=== PATIENT | female | born 1960 | race American Indian/Alaskan Native ===

== ENCOUNTER 2017-01-10 11:57 | Emergency (ER) | payer OTHER ==
[2017-01-10 12:20] VITALS: BMI 25.5
[2017-01-10 12:23] VITALS: O2SAT 98
[2017-01-10 12:51] VITALS: TEMP 97.8
--- NOTE | 2017-01-10 13:11 | ED PDOC ---
Arrival/HPI - General Chief Complaint: Abdominal Pain Time Seen by Provider: 01/10/17 12:43 Historian: Patient - History of Present Illness Narrative History of Present Illness (Text): 01/10/17 13:00 Romulo Gomez is a 56 year old female, whose past medical history includes chronic back pain and kidney stones, who presents to the emergency department complaining of intermittent epigastric pain, nausea, vomiting, and fever for 5 days. Patients states that her epigastria is hard and painful when touched. Patient describes her pain as a "hunger pain" that is similar to the pain she had before she got kidney stones, in the same location. Patient denies any chest pain, shortness of breath, diarrhea, urinary symptoms, back pain, neck pain, headache, dizziness, or any other complaints. PMD: Dr. 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 stent removal on sep 29, 2016 - Endocrine/Metabolic Hx Endocrine Disorders: No - Hematological/Oncological Hx Blood Transfusion Reaction: No - Integumentary Hx Dermatological Disorder: No - Musculoskeletal/Rheumatological Hx Musculoskeletal Disorders: No Hx Falls: No - Gastrointestinal Hx Gastrointestinal Disorders: No - Genitourinary/Gynecological Hx Genitourinary Disorders: No - Psychiatric Hx Psychophysiologic Disorder: No Hx Substance Use: No - Surgical History Other/Comment: stent 1 week for stones right side kidney - Anesthesia Hx Anesthesia Reactions: No Hx Malignant Hyperthermia: No Family/Social History - Physician Review Nursing Documentation Reviewed: Yes Family/Social History: No Known Family HX Smoking Status: Light Smoker < 10 Cigarettes Daily Hx Alcohol Use: No Hx Substance Use: No Allergies/Home Meds Allergies/Adverse Reactions: Allergies No Known Allergies Allergy (Verified 01/10/17 12:20) Review of Systems - Physician Review All systems were reviewed & negative as marked: Yes - Review of Systems Constitutional: Fevers. absent: Night Sweats Eyes: absent: Vision Changes ENT: absent: Hearing Changes Respiratory: absent: SOB, Cough Cardiovascular: absent: Chest Pain Gastrointestinal: Abdominal Pain, Nausea, Vomiting Genitourinary Female: absent: Urine Output Changes Musculoskeletal: absent: Back Pain, Neck Pain Skin: absent: Rash, Pruritis Neurological: absent: Headache, Dizziness Endocrine: absent: Polyuria Hemo/Lymphatic: absent: Easy Bleeding Psychiatric: absent: Depression Physical Exam Vital Signs Reviewed: Yes Vital Signs Temp Pulse Resp BP Pulse Ox 01/10/17 17:27 84 18 136/89 98 01/10/17 16:24 91 H 18 138/91 H 98 01/10/17 12:50 97.8 F 01/10/17 12:20 99.5 F 102 H 16 143/103 H 98 Temperature: Afebrile Blood Pressure: Hypertensive Pulse: Tachycardic Respiratory Rate: Normal Appearance: Positive for: Well-Appearing, Non-Toxic, Comfortable Pain Distress: None Mental Status: Positive for: Alert and Oriented X 3 - Systems Exam Head: Present: Atraumatic, Normocephalic Pupils: Present: PERRL Extroacular Muscles: Present: EOMI Conjunctiva: Present: Normal Mouth: Present: Moist Mucous Membranes Neck: Present: Normal Range of Motion Respiratory/Chest: Present: Clear to Auscultation, Good Air Exchange. No: Respiratory Distress, Accessory Muscle Use Cardiovascular: Present: Regular Rate and Rhythm, Normal S1, S2. No: Murmurs Abdomen: Present: Tenderness (severe tenderness to palpation to epigastric area) Back: Present: Normal Inspection Upper Extremity: Present: Normal Inspection. No: Cyanosis, Edema Lower Extremity: Present: Normal Inspection. No: Edema Neurological: Present: GCS=15, CN II-XII Intact, Speech Normal Skin: Present: Warm, Dry, Normal Color. No: Rashes Psychiatric: Present: Alert, Oriented x 3, Normal Insight, Normal Concentration Medical Decision Making ED Course and Treatment: 01/10/17 13:00 Impression: 56 year old female complaining of intermittent epigastric pain, nausea, vomiting , and fever for 5 days Differential Diagnosis included but are not limited to: Renal stone vs. Perforated viscus vs. Cholecystitis vs. Pancreatitis vs. peptic ulcer disease Plan: -- EKG -- Chest X-ray -- Abdomen US -- Abdomen and Pelvis CT w/o contrast -- Urinalysis -- Labs -- Pepcid, Toradol, Morphine, Zofran, and IV Fluids -- Reassess and disposition Prior Visits: Notes and results from previous visits were reviewed. Patient last seen in the ED on 09/30/16 for right flank pain for a day. Patient was admitted to hospitalist care for further evaluation. Progress Notes: EKG: Ordered, reviewed, and independently interpreted the EKG. Rate : 99 BPM Rhythm : NSR Interpretation : Normal intervals. Normal axis. No ST-T changes. 01/10/17 14:55 Abdominal Ultrasound: Creator : Eddie Mena MD FINDINGS: LIVER:Measures 17.4 cm. Normal echogenicity of the liver parenchyma. No mass. No intrahepatic bile duct dilatation. GALLBLADDER:Unremarkable. No gallstones. COMMON BILE DUCT:Measures 2 mm. No stones. No dilatation. PANCREAS:Unremarkable as visualized. No mass. No ductal dilatation. RIGHT KIDNEY:Measures 10.6cm. Normal echogenicity. No calculus, mass, or hydronephrosis. LEFT KIDNEY:Measures 10.7cm. Normal echogenicity. No calculus, mass, or hydronephrosis. SPLEEN:Normal in size and contour. No mass. AORTA:No aneurysmal dilatation. IVC:Unremarkable. OTHER FINDINGS:None. IMPRESSION:Unremarkable abdominal sonogram. 01/10/17 15:00 Chest X-ray: Creator : Chris Barnes MD FINDINGS: LUNGS:Clear. PLEURA:No pneumothorax or pleural fluid seen. CARDIOVASCULAR:Normal. OSSEOUS STRUCTURES:No significant abnormalities. VISUALIZED UPPER ABDOMEN:Normal. OTHER FINDINGS:None. IMPRESSION: No active disease. 01/10/17 15:[address]: Creator : Eddie Mena MD FINDINGS: LOWER THORAX:Unremarkable. LIVER:Unremarkable. No gross lesion or ductal dilatation. GALLBLADDER AND BILE DUCTS:Unremarkable. PANCREAS:Unremarkable. No gross lesion or ductal dilatation. SPLEEN:Unremarkable. ADRENALS:Unremarkable. No mass. KIDNEYS AND URETERS:Unremarkable. No hydronephrosis. No solid mass. No renal or ureteral calculus. VASCULATURE:Unremarkable. No aortic aneurysm. BOWEL:Unremarkable. No obstruction. No gross mural thickening. APPENDIX:Unremarkable. Normal appendix. PERITONEUM:Unremarkable. No free fluid. No free air. LYMPH NODES:Unremarkable. No enlarged lymph nodes. BLADDER:Unremarkable. REPRODUCTIVE:Status post hysterectomy BONES:No acute fracture. OTHER FINDINGS:None. IMPRESSION: No acute abnormality. No evidence of urinary calculus or urinary tract obstruction. 01/10/17 18:02 Patient with noted history with unremarkable labs and imaging and unremarkable ekg. She reports feeling much better at this time with resolution of pain. Will d/c her on PPI and have her f/u GI. - Lab Interpretations Lab Results: 01/10/17 14:05 01/10/17 14:05 Lab Results 01/10/17 16:50: Urine Color Yellow, Urine Appearance Clear, Urine pH 6.0, Ur Specific [place] 1.025, Urine Protein Negative, Urine Glucose (UA) Negative, Urine Ketones 15 H, Urine Blood Negative, Urine Nitrate Negative, Urine Bilirubin Negative, Urine Urobilinogen 1.0 H, Ur Leukocyte Esterase Negative 01/10/17 14:05: Sodium 139, Potassium 4.9, Chloride 103, Carbon Dioxide 28, Anion Gap 13, BUN 15, Creatinine 0.8, Est GFR ( Amer) > 60, Est GFR (Non- Af Amer) > 60, Random Glucose 94, Calcium 10.2, Total Bilirubin 0.8, AST 28, ALT 37, Alkaline Phosphatase 138 H, Lactate Dehydrogenase 506, Total Creatine Kinase 62, Troponin I < 0.01, Total Protein 8.5 H, Albumin 4.5, Globulin 4.0, Albumin/Globulin Ratio 1.1, Amylase 128 H, Lipase 133 01/10/17 14:05: PT 10.5, INR 0.97, APTT 27.9 01/10/17 14:05: WBC 7.2 D, RBC 4.86, Hgb 13.7, Hct 40.6, MCV 83.5, MCH 28.2, MCHC 33.7, RDW 14.4, Plt Count 203, MPV 11.2 H, Gran % 56.8, Lymph % (Auto) 35.5 H, Emmet % (Auto) 5.0, Eos % (Auto) 2.1, Baso % (Auto) 0.6, Gran # 4.11, Lymph # 2.6, Emmet # 0.4, Eos # 0.2, Baso # 0.04 I have reviewed the lab results: Yes - RAD Interpretation Radiology Orders: 01/10/17 13:14 ABDOMEN COMPLETE [US] Stat 01/10/17 13:15 ABD & PELVIS W/O PO OR IV CONT [CT] Stat 01/10/17 13:16 CHEST ONE VIEW [RAD] Stat - Medication Orders Current Medication Orders: Discontinued Medications Famotidine (Pepcid) 20 mg IVP STAT STA Stop: 01/10/17 13:15 Last Admin: 01/10/17 14:07 Dose: 20 mg Sodium Chloride (Sodium Chloride 0.9%) 1,000 mls @ 999 mls/hr IV .Q1H1M STA Stop: 01/10/17 14:14 Last Admin: 01/10/17 14:09 Dose: 999 mls/hr Ketorolac Tromethamine (Toradol) 30 mg IVP STAT STA Stop: 01/10/17 13:15 Last Admin: 01/10/17 14:07 Dose: 30 mg Morphine Sulfate (Morphine) 4 mg IVP STAT STA Stop: 01/10/17 13:16 Last Admin: 01/10/17 14:08 Dose: 4 mg Morphine Sulfate (Morphine) 4 mg IVP STAT STA Stop: 01/10/17 15:18 Last Admin: 01/10/17 15:38 Dose: 4 mg Ondansetron HCl (Zofran Inj) 4 mg IVP STAT STA Stop: 01/10/17 13:18 Last Admin: 01/10/17 14:08 Dose: 4 mg - Scribe Statement The provider has reviewed the documentation as recorded by the Stacey Amado Provider Scribe Attestation: All medical record entries made by the Cadenceibmarina were at my direction and personally dictated by me. I have reviewed the chart and agree that the record accurately reflects my personal performance of the history, physical exam, medical decision making, and the department course for this patient. I have also personally directed, reviewed, and agree with the discharge instructions and disposition. Disposition/Present on Arrival - Present on Arrival Any Indicators Present on Arrival: No History of DVT/PE: No History of Uncontrolled Diabetes: No Urinary Catheter: No History of Decub. Ulcer: No History Surgical Site Infection Following: None - Disposition Have Diagnosis and Disposition been Completed?: Yes Diagnosis: Epigastric pain Disposition: HOME/ ROUTINE Disposition Time: 18:05 Patient Plan: Discharge Condition: GOOD Discharge Instructions (ExitCare): Diet for Ulcers and Gastritis (ED) Additional Instructions: Take the medications as prescribed. Follow up with gastroenterology. Return to the emergency department if any new concerning symptoms. Prescriptions: Esomeprazole Magnesium [Nexium] 1 cap PO DAILY #30 capsule. traMADol [Ultram] 1 tab PO Q8H PRN #10 tab PRN Reason: Pain, Severe (8-10) Referrals: Aubrie Medrano MD [Primary Care Provider] - Follow up with primary Salomón Gandhi MD [Staff Provider] - Follow up with primary
[2017-01-10] MEDS ORDERED: Sodium Chloride 0.9% 1,000 ML IV STA (13:14)
[2017-01-10] MEDS ORDERED: Morphine 4 mg/ml ISec IVP STA ×2 (13:15→15:17)
[2017-01-10 14:17] LABS: ADD MANUAL DIFF? NO
[2017-01-10 14:30] LABS: ALB/GLOB RATIO 1.1 (1.1-1.8); ALKALINE PHOSPHATASE 138 U/L (38-133); ALT/SGPT 37 U/L (7-56); AMYLASE 128 U/L (35-125); AST/SGOT 28 U/L (15-39); BILIRUBIN,TOTAL 0.8 mg/dL (0.2-1.3); BLOOD UREA NITROGEN 15 mg/dL (7-21); CALCIUM 10.2 mg/dL (8.4-10.5); CARBON DIOXIDE 28 mmol/L (21-33); CHLORIDE 103 mmol/L (98-107); GFR AFRICAN-AMERICAN > 60; GLUCOSE,RANDOM 94 mg/dL (70-110); LIPASE 133 U/L (23-300); POTASSIUM 4.9 mmol/L (3.6-5.0); SODIUM 139 mmol/L (132-148); TOTAL PROTEIN 8.5 g/dL (5.8-8.3)
[2017-01-10 14:35] LABS: BASO # 0.04 K/mm3 (0.0-2.0); BASO % 0.6 % (0.0-3.0); EOS # 0.2 (0.0-0.7); EOS % 2.1 % (1.5-5.0); GRAN # 4.11 (1.4-6.5); GRAN % 56.8 % (50.0-68.0); HEMATOCRIT 40.6 % (36.0-48.0); LYMPH # 2.6 (1.2-3.4); LYMPH % 35.5 % (22.0-35.0); MEAN CELL VOLUME 83.5 fL (80.0-105.0); MEAN CORPUSCULAR HEMOGLOBIN 28.2 pg (25.0-35.0); MEAN CORPUSCULAR HGB CONC 33.7 g/dl (31.0-37.0); MEAN PLATELET VOLUME 11.2 fl (7.0-11.0); MONO # 0.4 (0.1-0.6); PLATELET COUNT 203 10^3/uL (120.0-450.0); RED CELL DISTRIBUTION WIDTH 14.4 % (11.5-14.5); WHITE BLOOD COUNT 7.2 10^3/ul (4.5-11.0)
[2017-01-10 14:41] LABS: INR 0.97 (0.93-1.08); PARTIAL THROMBOPLASTIN TIME 27.9 Seconds (23.7-30.8)
[2017-01-10 14:43] LABS: TROPONIN I < 0.01 ng/mL
--- NOTE | 2017-01-10 14:51 | US ---
HISTORY: upper abd pain COMPARISON: 08/16/2016 TECHNIQUE: Sonographic evaluation of the abdomen. FINDINGS: LIVER: Measures 17.4 cm. Normal echogenicity of the liver parenchyma. No mass. No intrahepatic bile duct dilatation. GALLBLADDER: Unremarkable. No gallstones. COMMON BILE DUCT: Measures 2 mm. No stones. No dilatation. PANCREAS: Unremarkable as visualized. No mass. No ductal dilatation. RIGHT KIDNEY: Measures 10.6cm. Normal echogenicity. No calculus, mass, or hydronephrosis. LEFT KIDNEY: Measures 10.7cm. Normal echogenicity. No calculus, mass, or hydronephrosis. SPLEEN: Normal in size and contour. No mass. AORTA: No aneurysmal dilatation. IVC: Unremarkable. OTHER FINDINGS: None. IMPRESSION: Unremarkable abdominal sonogram.
--- NOTE | 2017-01-10 15:00 | RAD ---
PROCEDURE: CHEST RADIOGRAPH, 1 VIEW HISTORY: upper abd pain COMPARISON: 08/16/2016 FINDINGS: LUNGS: Clear. PLEURA: No pneumothorax or pleural fluid seen. CARDIOVASCULAR: Normal. OSSEOUS STRUCTURES: No significant abnormalities. VISUALIZED UPPER ABDOMEN: Normal. OTHER FINDINGS: None. IMPRESSION: No active disease.
--- NOTE | 2017-01-10 15:02 | CT ---
PROCEDURE: CT Abdomen and Pelvis without intravenous contrast HISTORY: abd pain; h/o renal stones and hydronephrosis COMPARISON: None. TECHNIQUE: Technique. Contrast Dose: 0 Radiation dose: Total exam DLP = 416.19 mGy-cm. This CT exam was performed using one or more of the following dose reduction techniques: Automated exposure control, adjustment of the mA and/or kV according to patient size, and/or use of iterative reconstruction technique. FINDINGS: LOWER THORAX: Unremarkable. LIVER: Unremarkable. No gross lesion or ductal dilatation. GALLBLADDER AND BILE DUCTS: Unremarkable. PANCREAS: Unremarkable. No gross lesion or ductal dilatation. SPLEEN: Unremarkable. ADRENALS: Unremarkable. No mass. KIDNEYS AND URETERS: Unremarkable. No hydronephrosis. No solid mass. No renal or ureteral calculus. VASCULATURE: Unremarkable. No aortic aneurysm. BOWEL: Unremarkable. No obstruction. No gross mural thickening. APPENDIX: Unremarkable. Normal appendix. PERITONEUM: Unremarkable. No free fluid. No free air. LYMPH NODES: Unremarkable. No enlarged lymph nodes. BLADDER: Unremarkable. REPRODUCTIVE: Status post hysterectomy BONES: No acute fracture. OTHER FINDINGS: None. IMPRESSION: No acute abnormality. No evidence of urinary calculus or urinary tract obstruction.
[2017-01-10 16:24] VITALS: RESP 18
[2017-01-10 17:05] LABS: URINE BILIRUBIN NEGATIVE (NEGATIVE); URINE BLOOD NEGATIVE (NEGATIVE); URINE GLUCOSE (UA) NEGATIVE (NEGATIVE); URINE KETONE 15 mg/dL (NEGATIVE); URINE LEUKOCYTE ESTERASE NEGATIVE Leu/uL (NEGATIVE); URINE PROTEIN NEGATIVE mg/dL (<30 mg/dL)
[2017-01-10 17:17] LABS: URINE APPEARANCE CLEAR (CLEAR); URINE COLOR YELLOW (YELLOW)
[2017-01-10 17:27] VITALS: PULSE 84
[2017-01-10 18:15] VITALS: BP 111/77
--- NOTE | 2017-01-11 01:33 | CARD ---
APPROVED REPORT EKG Measurement Heart [id number] <Conclusion> Normal sinus rhythm Possible Left atrial enlargement Borderline ECG
== END 2017-01-10 18:41 | disposition home or self-care (01) ==
LOC: ED 11:57
DX: R10.13 Epigastric pain (principal)
CPT/HCPCS: 71010; 74176; 76700; 80053; 81003; 82150; 82550; 83615; 83690; 84484; 85025; 85610; 85730; 93005; 96361; 96374; 96375; 96376; 99284; J1885; J2270; J2405; J7040

== ENCOUNTER 2017-06-02 15:36 | Observation (INO) | payer OTHER ==
[2017-06-02 15:37] VITALS: BMI 25.5
--- NOTE | 2017-06-02 15:59 | ED PDOC ---
Arrival/HPI - General Chief Complaint: Weakness/Neurological Deficit Time Seen by Provider: 06/02/17 15:37 Historian: Patient - History of Present Illness Narrative History of Present Illness (Text): 06/02/17 15:56 57 yo female, hx of htn, presents with numbness and slurred speech, as per pt, started yesterday. reports left sided numbness. also reports left sided cp and huston. no fevers, no cough, no n/v/d, no urinary changes. 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 stent removal on sep 29, 2016 - Endocrine/Metabolic Hx Endocrine Disorders: No - Hematological/Oncological Hx Blood Transfusion Reaction: No - Integumentary Hx Dermatological Disorder: No - Musculoskeletal/Rheumatological Hx Musculoskeletal Disorders: No Hx Falls: No - Gastrointestinal Hx Gastrointestinal Disorders: No - Genitourinary/Gynecological Hx Genitourinary Disorders: No - Psychiatric Hx Psychophysiologic Disorder: No Hx Substance Use: No - Surgical History Other/Comment: stent 1 week for stones right side kidney - Anesthesia Hx Anesthesia Reactions: No Hx Malignant Hyperthermia: No Family/Social History - Physician Review Nursing Documentation Reviewed: Yes Family/Social History: Unknown Family HX Smoking Status: Light Smoker < 10 Cigarettes Daily Hx Alcohol Use: No Hx Substance Use: No Allergies/Home Meds Allergies/Adverse Reactions: Allergies No Known Allergies Allergy (Verified 01/10/17 12:20) Home Medications: Home Meds Medication Instructions Recorded Confirmed Losartan [Cozaar] 0 mg PO BID 06/02/17 06/02/17 Review of Systems - Review of Systems Constitutional: Normal Eyes: Normal ENT: Normal Respiratory: Normal Cardiovascular: Chest Pain Gastrointestinal: Normal Genitourinary Female: Normal Musculoskeletal: Normal Skin: Normal Neurological: Headache, Other (numbness) Endocrine: Normal Hemo/Lymphatic: Normal Psychiatric: Normal Physical Exam Vital Signs Reviewed: Yes Vital Signs Temp Pulse Resp BP Pulse Ox 06/02/17 18:03 84 17 135/92 H 98 06/02/17 17:11 73 16 136/89 100 06/02/17 15:40 97.9 F 92 H 16 140/98 H 95 Temperature: Afebrile Blood Pressure: Hypertensive Pulse: Regular Respiratory Rate: Normal Appearance: Positive for: Well-Appearing, Non-Toxic, Comfortable Pain Distress: None Mental Status: Positive for: Alert and Oriented X 3 - Systems Exam Head: Present: Atraumatic, Normocephalic Pupils: Present: PERRL Extroacular Muscles: Present: EOMI Conjunctiva: Present: Normal Mouth: Present: Moist Mucous Membranes Neck: Present: Normal Range of Motion Respiratory/Chest: Present: Clear to Auscultation, Good Air Exchange. No: Respiratory Distress, Accessory Muscle Use Cardiovascular: Present: Regular Rate and Rhythm, Normal S1, S2. No: Murmurs Abdomen: Present: Normal Bowel Sounds. No: Tenderness, Distention, Peritoneal Signs Back: Present: Normal Inspection Upper Extremity: Present: Normal Inspection. No: Cyanosis, Edema Lower Extremity: Present: Normal Inspection. No: Edema Neurological: Present: GCS=15, CN II-XII Intact, Other (mild slurring speech) Skin: Present: Warm, Dry, Normal Color. No: Rashes Psychiatric: Present: Alert, Oriented x 3, Normal Insight, Normal Concentration Medical Decision Making ED Course and Treatment: ro cva - pt with 1 day of symptoms not code stroke. 06/02/17 16:02 ekg sinus [address] t wave changes 06/02/17 16:26 CT HEAD WITHOUT CONTRAST Creator : Chris Barnes MD FINDINGS: HEMORRHAGE: No intracranial hemorrhage. BRAIN: No mass effect or edema. No atrophy or chronic microvascular ischemic changes. VENTRICLES: Unremarkable. No hydrocephalus. CALVARIUM: Unremarkable. PARANASAL SINUSES: Unremarkable as visualized. No significant inflammatory changes. MASTOID AIR CELLS: Unremarkable as visualized. No inflammatory changes. IMPRESSION: Normal CT of the Head. 06/02/17 17:05 chest xray: Creator : Chris Barnes MD FINDINGS: LUNGS: No active pulmonary disease. PLEURA: No significant pleural effusion identified, no pneumothorax apparent. CARDIOVASCULAR: Normal. OSSEOUS STRUCTURES: No significant abnormalities. VISUALIZED UPPER ABDOMEN: Normal. IMPRESSION: No active disease. 06/02/17 18:[address] young, asa given. - Lab Interpretations Lab Results: 06/02/17 16:00 06/02/17 16:00 Lab Results 06/02/17 16:00: TSH 3rd Generation 0.75, Alcohol, Quantitative < 10 06/02/17 16:00: Phosphorus 4.1, Magnesium 2.0 06/02/17 16:00: Blood Type O POSITIVE, Antibody Screen Negative, BBK History Checked Patient has bt 06/02/17 16:00: Sodium 143, Potassium 4.0, Chloride 108 H, Carbon Dioxide 25, Anion Gap 14, BUN 14, Creatinine 0.9, Est GFR ( Amer) > 60, Est GFR (Non- Af Amer) > 60, Random Glucose 97, Calcium 10.0, Magnesium 2.0, Total Bilirubin 0.9, AST 44 H, ALT 34, Alkaline Phosphatase 136 H, Lactate Dehydrogenase 623, Total Creatine Kinase 171, Troponin I < 0.01, Total Protein 8.0, Albumin 4.6, Globulin 3.4, Albumin/Globulin Ratio 1.4, Triglycerides 84, Cholesterol 189, LDL Cholesterol Direct 81, HDL Cholesterol 75 H 06/02/17 16:00: PT 11.3, INR 1.04, APTT 29.7 06/02/17 16:00: WBC 5.6 D, RBC 4.81, Hgb 13.8, Hct 41.2, MCV 85.7, MCH 28.7, MCHC 33.5, RDW 14.3, Plt Count 193, MPV 11.8 H, Gran % 38.3 L, Lymph % (Auto) 54.6 H, Mckenzie % (Auto) 4.3, Eos % (Auto) 1.6, Baso % (Auto) 1.2, Gran # 2.16, Lymph # 3.1, Mckenzie # 0.2, Eos # 0.1, Baso # 0.07 - RAD Interpretation Radiology Orders: 06/02/17 15:55 CHEST PORTABLE [RAD] Stat 06/02/17 15:56 HEAD W/O CONTRAST [CT] Stat - Medication Orders Current Medication Orders: Discontinued Medications Acetaminophen (Tylenol 325mg Tab) 650 mg PO Q6H PRN PRN Reason: Pain, moderate (4-7) Last Admin: 06/03/17 15:42 Dose: 650 mg Re-Assess: MAR Pain/Vitals Document 06/03/17 16:42 JFR (Rec: 06/03/17 16:59 [facility] [id number]) Pain Reassessment Is This A Pain ReAssessment? Yes Sleep Is patient sleeping during reassessment? Yes Aspirin (Aspirin) 325 mg PO STAT STA Stop: 06/02/17 16:57 Last Admin: 06/02/17 17:11 Dose: 325 mg Aspirin (Aspirin Chewable) 81 mg PO DAILY GEOVANNA Last Admin: 06/04/17 10:01 Dose: 81 mg Atorvastatin Calcium (Lipitor) 20 mg PO DIN REPLACED BY [facility] Last Admin: 06/03/17 18:34 Dose: 20 mg Gabapentin (Neurontin) 100 mg PO DAILY GEOVANNA PRN Reason: Protocol Last Admin: 06/03/17 09:27 Dose: 100 mg Behavioural Document 06/03/17 09:27 JFR (Rec: 06/03/17 09:27 [facility] [id number]) Maintenance Maintenance Dose Yes Re-Assess: Reassess Psych Meds Document 06/03/17 10:27 JFR (Rec: 06/03/17 10:52 [facility] [id number]) Reassess Psych Med Effective Gabapentin (Neurontin) 200 mg PO BID GEOVANNA PRN Reason: Protocol Gabapentin (Neurontin) 200 mg PO BID GEOVANNA PRN Reason: Protocol Last Admin: 06/04/17 10:01 Dose: 200 mg Behavioural Document 06/04/17 10:01 JFR (Rec: 06/04/17 10:02 [facility] [id number]) Maintenance Maintenance Dose Yes Re-Assess: Reassess Psych Meds Document 06/04/17 11:01 JFR (Rec: 06/04/17 11:02 [facility] [id number]) Reassess Psych Med Effective Pantoprazole Sodium (Protonix Ec Tab) 40 mg PO ACB REPLACED BY [facility] Last Admin: 06/04/17 06:31 Dose: 40 mg Pneumococcal Polyvalent Vaccine (Pneumovax 23 Vaccine) 0.5 ml IM .ONCE ONE Stop: 06/04/17 12:01 Last Admin: 06/04/17 12:24 Dose: 0.5 ml MAR Immunization Data Document 06/04/17 12:24 JFR (Rec: 06/04/17 12:25 JFR [id number]) Immunization Data Vaccine Eligibility Yes Vaccine Eligibility Date 06/04/17 Vaccine Information Sheet Given Yes Vaccine Information Sheet Given Date 06/04/17 Informed Consent Given Yes Vaccine Lot Number [id number] Vaccine Expiration Date 06/21/18 Site Given Right Arm Route Intramuscular NIHSS Scale (Morgan) Time Performed: 16:57 - How Severe is the Stoke Baseline Level of Consciousness: 1=Drowsy LOC to Questions: 0=Both comments correct LOC to commands: 0=Obeys both correctly Best Gaze: 0=Normal Visual: 0=No visual loss Facial: 0=Normal Motor Arm - Left: 0=No drift Motor Arm - Right: 0=No drift Motor Leg - Left: 0=No drift Motor Leg - Right: 0=No drift Limb Ataxia: 0=Absent Sensory: 0=Normal Best Language: 1=Mild to moderate aphasia Dysarthia: 1=Mild to moderate slurring Extinction & Inattention (Neglect): 0=Normal, no object Score: 3 Risk Level: Minor Stroke Risk rTPA Inclusion/Exclusion - Refusal of Treatment Patient Refused Treatment: No - Inclusion Criteria for Altepase Patient is 18 years or Older: Yes The Clinical Diagnosis of Ischemic Stroke That is Causing a Potentially Disabling Neurological Deficit: No Time of Onset is Well Established to be Less Than 270 Minute Before Treatment Would Begin: No Risk/Benefit Discussed With Patient/Family Member Present: Yes Disposition/Present on Arrival - Present on Arrival Any Indicators Present on Arrival: No History of DVT/PE: No History of Uncontrolled Diabetes: No Urinary Catheter: No History of Decub. Ulcer: No History Surgical Site Infection Following: None - Disposition Have Diagnosis and Disposition been Completed?: Yes Diagnosis: Slurred speech Disposition: HOSPITALIZED Disposition Time: 06:00 Condition: STABLE
[2017-06-02 16:11] LABS: BASO # 0.07 K/mm3 (0.0-2.0); BASO % 1.2 % (0.0-3.0); EOS # 0.1 (0.0-0.7); EOS % 1.6 % (1.5-5.0); GRAN # 2.16 (1.4-6.5); GRAN % 38.3 % (50.0-68.0); HEMATOCRIT 41.2 % (36.0-48.0); LYMPH # 3.1 (1.2-3.4); LYMPH % 54.6 % (22.0-35.0); MEAN CELL VOLUME 85.7 fl (80.0-105.0); MEAN CORPUSCULAR HEMOGLOBIN 28.7 pg (25.0-35.0); MEAN CORPUSCULAR HGB CONC 33.5 g/dl (31.0-37.0); MEAN PLATELET VOLUME 11.8 fl (7.0-11.0); MONO # 0.2 (0.1-0.6); MONO % 4.3 % (1.0-6.0); RED CELL DISTRIBUTION WIDTH 14.3 % (11.5-14.5); WHITE BLOOD COUNT 5.6 10^3/ul (4.5-11.0)
--- NOTE | 2017-06-02 16:23 | CT ---
PROCEDURE: CT HEAD WITHOUT CONTRAST. HISTORY: slurred speech, numbness COMPARISON: None available. TECHNIQUE: Axial computed tomography images were obtained through the head/brain without intravenous contrast. Radiation dose: Total exam DLP = 726 mGy-cm. This CT exam was performed using one or more of the following dose reduction techniques: Automated exposure control, adjustment of the mA and/or kV according to patient size, and/or use of iterative reconstruction technique. FINDINGS: HEMORRHAGE: No intracranial hemorrhage. BRAIN: No mass effect or edema. No atrophy or chronic microvascular ischemic changes. VENTRICLES: Unremarkable. No hydrocephalus. CALVARIUM: Unremarkable. PARANASAL SINUSES: Unremarkable as visualized. No significant inflammatory changes. MASTOID AIR CELLS: Unremarkable as visualized. No inflammatory changes. OTHER FINDINGS: None. IMPRESSION: Normal CT of the Head.
[2017-06-02 16:27] LABS: ALB/GLOB RATIO 1.4 (1.1-1.8); ALKALINE PHOSPHATASE 136 U/L (38-126); ALT/SGPT 34 U/L (7-56); AST/SGOT 44 U/L (14-36); BILIRUBIN,TOTAL 0.9 mg/dL (0.2-1.3); BLOOD UREA NITROGEN 14 mg/dL (7-21); CARBON DIOXIDE 25 mmol/L (21-33); CHLORIDE 108 mmol/L (98-107); CHOLESTEROL 189 mg/dL (130-200); GFR AFRICAN-AMERICAN > 60; GLUCOSE,RANDOM 97 mg/dL (70-110); SODIUM 143 mmol/L (132-148)
[2017-06-02 16:31] LABS: INR 1.04 (0.93-1.08); PARTIAL THROMBOPLASTIN TIME 29.7 Seconds (25.1-36.5)
[2017-06-02 16:44] LABS: TROPONIN I < 0.01 ng/mL
--- NOTE | 2017-06-02 17:03 | RAD ---
HISTORY: cp COMPARISON: 01/10/2017 FINDINGS: LUNGS: No active pulmonary disease. PLEURA: No significant pleural effusion identified, no pneumothorax apparent. CARDIOVASCULAR: Normal. OSSEOUS STRUCTURES: No significant abnormalities. VISUALIZED UPPER ABDOMEN: Normal. OTHER FINDINGS: None. IMPRESSION: No active disease.
[2017-06-02] MEDS ORDERED: Iohexol 350 MG/100 ML VIAL ONE (18:52)
--- NOTE | 2017-06-02 19:21 | CP.PCM.HP ---
<Jay Roberson - Last Filed: 06/02/17 19:40> History of Present Illness - History of Present Illness History of Present Illness: 57 yo female with past medical history of bells palsy, lyme disease, HTN presents after her mother noticed the patient had some slurred speech ay home yesterday. She says that Patient states the slurred speech lasted only for a couple of minutes. She also stated she had a headache above her left eye which she still currently has. She looked at her face in the mirror, and she did not see any changes from how her face usually looks. Patient states she has some numbness and tingling in her left arm which goes down to her fingers, but she has had that for a while now. She also stated some chest discomfort which she has had for 2-3 months. while and states that is is better when she left up and presses the area with her hand. Currently she denies any SOB, nausea, vomiting, abdominal pain, fever, sore throat or any other complain. PMH: bells palsy, lyme disease, HTN PSH: Hysterectomy Allergies: NKDA Social: smokes 3 cigarettes a day, denies alcohol or illicit drug use Family Hx: mother has uterine cancer Present on Admission - Present on Admission Any Indicators Present on Admission: No Review of Systems - Constitutional Constitutional: Headache. absent: Anorexia, Excessive Sweating, Night Sweats - EENT Eyes: absent: Blurred Vision, Change in Vision, Loss of Peripheral Vision Nose/Mouth/Throat: absent: Nasal Congestion, Nasal Discharge, Dysphagia, Sore Throat, Throat Swelling, Tongue Swelling - Cardiovascular Cardiovascular: absent: Lightheadedness, Palpitations Additional comments: Chest discomfort - Respiratory Respiratory: absent: Cough, Chest Congestion - Gastrointestinal Gastrointestinal: absent: Abdominal Pain, Nausea, Vomiting - Genitourinary Genitourinary: absent: Change in Urinary Stream, Difficulty Urinating - Reproductive: Female Additional comments: Hysterectomy - Musculoskeletal Musculoskeletal: Numbness, Tingling Additional comments: numbness and tingling in left arm radiating to fingers - Neurological Neurological: Numbness, Headaches, Tingling. absent: Dizziness, Loss of Vision Past Patient History - Infectious Disease Hx of Infectious Diseases: None - Past Social History Smoking Status: Light Smoker < 10 Cigarettes Daily - CARDIAC Hx Cardiac Disorders: No Hx Hypertension: Yes - PULMONARY Hx Respiratory Disorders: No - NEUROLOGICAL Hx Neurological Disorder: Yes Other/Comment: lymes disease dx 1979, developed bells palsey and short term memory loss at times - HEENT Hx HEENT Problems: Yes (eyeglasses) - RENAL Hx Chronic Kidney Disease: Yes Other/Comment: right kidney stent placed 1st week in august 2016. stent removal on sep 29, 2016 - ENDOCRINE/METABOLIC Hx Endocrine Disorders: No - HEMATOLOGICAL/ONCOLOGICAL Hx Blood Transfusion Reaction: No - INTEGUMENTARY Hx Dermatological Problems: No - MUSCULOSKELETAL/RHEUMATOLOGICAL Hx Musculoskeletal Disorders: No Hx Falls: No - GASTROINTESTINAL Hx Gastrointestinal Disorders: No - GENITOURINARY/GYNECOLOGICAL Hx Genitourinary Disorders: No - PSYCHIATRIC Hx Psychophysiologic Disorder: No Hx Substance Use: No - SURGICAL HISTORY Other/Comment: stent 1 week for stones right side kidney - ANESTHESIA Hx Anesthesia Reactions: No Hx Malignant Hyperthermia: No Meds Allergies/Adverse Reactions: Allergies Allergy/AdvReac Type Severity Reaction Status Date / Time No Known Allergies Allergy Verified 01/10/17 12:20 Physical Exam - Constitutional Appears: Non-toxic, No Acute Distress - Head Exam Head Exam: ATRAUMATIC, NORMAL INSPECTION, NORMOCEPHALIC - Eye Exam Eye Exam: EOMI, Normal appearance, PERRL Pupil Exam: NORMAL ACCOMODATION, PERRL - ENT Exam ENT Exam: Mucous Membranes Moist, Normal Exam - Neck Exam Neck exam: Positive for: Normal Inspection - Respiratory Exam Respiratory Exam: Clear to Auscultation Bilateral, NORMAL BREATHING PATTERN - Cardiovascular Exam Cardiovascular Exam: REGULAR RHYTHM, +S1, +S2 - GI/Abdominal Exam GI & Abdominal Exam: Normal Bowel Sounds. absent: Distended, Tenderness - Extremities Exam Additional comments: Decreased strength in left upper extremity, 4/5 strength 5/5 strength on right upper extremity decreased sensation in left upper extremity decreased strength and sensation in left lower extremity left upper extremity cooler to touch than right,, pulses normal on both sides - Neurological Exam Neurological exam: Alert, CN II-XII Intact, Oriented x3 Additional comments: no pronator drift, negative babinski, - Psychiatric Exam Psychiatric exam: Normal Affect - Skin Skin Exam: Normal Color Results - Vital Signs Recent Vital Signs: Last Vital Signs Temp 97.9 F 06/02/17 15:40 Pulse 84 06/02/17 18:03 Resp 17 06/02/17 18:03 BP 135/92 H 06/02/17 18:03 Pulse Ox 98 06/02/17 18:03 - Labs Result Diagrams: 06/02/17 16:00 06/02/17 16:00 Assessment & Plan - Assessment and Plan (Free Text) Assessment: 57 year old female with past medical history of lyme disease, bells palsy, HTN came in because her mother noticed slurred speech yesterday. She is being treated and hospitalized to rule out CVA. Plan: 1. Slurred Speech- Rule Out CVA -EKG ordered and obtained: sinus rhythm, pending official read -Chest Xray ordered and obtained: no active disease -CT head: normal no active bleed -started on lipitor -Started on aspirin -Mag 2.0 and Phosphate 4.1 -MRI of Brain with and without contrast ordered -CTA Neck ordered -Hemoglobin A1c ordered: -lipid panel ordered: Cholesterol total: 189, LDL: 81 -TSH level ordered -alcohol level ordered -urine drug screen -Bedside swallow evaluation ordered -echo ordered -physical therapy evaluation ordered 2. Chest Discomfort-chronice, likely chostochondritis, will rule out ACS -initial troponins negative, follow up serial -echo pending -EKG pending official read 3. Neuropathy -continue Gabapentin 4. HTN -BP: 135/92 -hold HTN medications -allow permissive HTN 5. GI/DVT prophylaxis -protonix -sequential compression device <Td Vazquez - Last Filed: 06/03/17 11:01> Results - Vital Signs Recent Vital Signs: Last Vital Signs Temp 98.5 F 06/03/17 06:00 Pulse 67 06/03/17 06:00 Resp 20 06/03/17 06:00 BP 133/90 06/03/17 06:00 Pulse Ox 100 06/03/17 06:00 - Labs Result Diagrams: 06/03/17 07:59 06/03/17 07:59 Labs: Laboratory Results - last 24 hr 06/02/17 06/02/17 06/02/17 21:15 21:15 22:26 WBC RBC Hgb Hct MCV MCH MCHC RDW Plt Count MPV Gran % Lymph % (Auto) [place] % (Auto) Eos % (Auto) Baso % (Auto) Gran # Lymph # [place] # Eos # Baso # Sodium Potassium Chloride Carbon Dioxide Anion Gap BUN Creatinine Est GFR ( Amer) Est GFR (Non-Af Amer) Random Glucose Calcium Total Bilirubin AST ALT Alkaline Phosphatase Troponin I < 0.01 Total Protein Albumin Globulin Albumin/Globulin Ratio Urine Color Yellow Urine Appearance Clear Urine pH 6.5 Ur Specific [place] 1.010 Urine Protein Negative Urine Glucose (UA) Negative Urine Ketones Trace H Urine Blood Negative Urine Nitrate Negative Urine Bilirubin Negative Urine Urobilinogen 0.2 Ur Leukocyte Esterase Negative Urine Opiates Screen Negative Urine Methadone Screen Negative Ur Barbiturates Screen Negative Ur Phencyclidine Scrn Negative Ur Amphetamines Screen Negative U Benzodiazepines Scrn Negative U Oth Cocaine Metabols Negative U Cannabinoids Screen Positive H 06/03/17 06/03/17 07:59 07:59 WBC 5.1 RBC 4.54 Hgb 12.8 Hct 39.2 MCV 86.3 MCH 28.2 MCHC 32.7 RDW 14.4 Plt Count 165 MPV 11.5 H Gran % 33.7 L Lymph % (Auto) 57.8 H [place] % (Auto) 5.3 Eos % (Auto) 2.4 Baso % (Auto) 0.8 Gran # 1.72 Lymph # 3.0 [place] # 0.3 Eos # 0.1 Baso # 0.04 Sodium 143 Potassium 4.4 Chloride 106 Carbon Dioxide 27 Anion Gap 14 BUN 13 Creatinine 0.9 Est GFR ( Amer) > 60 Est GFR (Non-Af Amer) > 60 Random Glucose 102 Calcium 9.6 Total Bilirubin 1.1 AST 30 ALT 36 Alkaline Phosphatase 120 Troponin I < 0.01 Total Protein 7.5 Albumin 4.3 Globulin 3.2 Albumin/Globulin Ratio 1.3 Urine Color Urine Appearance Urine pH Ur Specific [place] Urine Protein Urine Glucose (UA) Urine Ketones Urine Blood Urine Nitrate Urine Bilirubin Urine Urobilinogen Ur Leukocyte Esterase Urine Opiates Screen Urine Methadone Screen Ur Barbiturates Screen Ur Phencyclidine Scrn Ur Amphetamines Screen U Benzodiazepines Scrn U Oth Cocaine Metabols U Cannabinoids Screen Attending/Attestation - Attestation I have personally seen and examined this patient.: Yes I have fully participated in the care of the patient.: Yes I have reviewed all pertinent clinical information: Yes Notes (Text): 06/03/17 10:56 Patient was seen and examined with medical assistant. Agreed with resident assessment and plan. 57 yo female with past medical history of bells palsy, lyme disease, HTN is admitted with h/o slurring of speech and worsening of left arm numbness .CT head is negative, Patient is still has some slurring of speech.We will admit patient in telemetry, we will monitor Neuro check, will get MRI of Brain and Neurology consultation. Management plan was discussed in detail with patient Education was provided.
[2017-06-02 19:25] LABS: PHOSPHOROUS 4.1 mg/dL (2.5-4.5)
[2017-06-02 19:30] LABS: ALCOHOL SERUM < 10 mg/dL (0-10)
[2017-06-02 19:56] LABS: THYROID STIMULATING HORMONE 0.75 mIU/mL (0.46-4.68)
[2017-06-02 21:31] LABS: PH,URINE 6.5 (4.7-8.0); URINE BILIRUBIN NEGATIVE (NEGATIVE); URINE BLOOD NEGATIVE (NEGATIVE); URINE GLUCOSE (UA) NEGATIVE (NEGATIVE); URINE KETONE TRACE mg/dL (NEGATIVE); URINE LEUKOCYTE ESTERASE NEGATIVE Leu/uL (NEGATIVE); URINE PROTEIN NEGATIVE mg/dL (<30 mg/dL); URINE UROBILINOGEN 0.2 E.U./dL (<1 E.U./dL)
[2017-06-02 21:33] LABS: URINE APPEARANCE CLEAR (CLEAR); URINE COLOR YELLOW (YELLOW)
--- NOTE | 2017-06-02 22:33 | CARD ---
APPROVED REPORT EKG Measurement Heart [id number] <Conclusion> Sinus rhythm with short MI Minimal voltage criteria for LVH, may be normal variant Borderline ECG
[2017-06-03] MEDS: Pantoprazole 40 mg EC Tab PO SCH (07:28)
[2017-06-03 08:04] LABS: BASO # 0.04 K/mm3 (0.0-2.0); BASO % 0.8 % (0.0-3.0); EOS # 0.1 (0.0-0.7); EOS % 2.4 % (1.5-5.0); GRAN # 1.72 (1.4-6.5); GRAN % 33.7 % (50.0-68.0); HEMATOCRIT 39.2 % (36.0-48.0); LYMPH % 57.8 % (22.0-35.0); MEAN CELL VOLUME 86.3 fl (80.0-105.0); MEAN CORPUSCULAR HEMOGLOBIN 28.2 pg (25.0-35.0); MEAN CORPUSCULAR HGB CONC 32.7 g/dl (31.0-37.0); MEAN PLATELET VOLUME 11.5 fl (7.0-11.0); MONO # 0.3 (0.1-0.6); MONO % 5.3 % (1.0-6.0); RED CELL DISTRIBUTION WIDTH 14.4 % (11.5-14.5); WHITE BLOOD COUNT 5.1 10^3/ul (4.5-11.0)
[2017-06-03 08:27] LABS: ALB/GLOB RATIO 1.3 (1.1-1.8); ALKALINE PHOSPHATASE 120 U/L (38-126); ALT/SGPT 36 U/L (7-56); AST/SGOT 30 U/L (14-36); BILIRUBIN,TOTAL 1.1 mg/dL (0.2-1.3); BLOOD UREA NITROGEN 13 mg/dL (7-21); CALCIUM 9.6 mg/dL (8.4-10.5); CARBON DIOXIDE 27 mmol/L (21-33); CHLORIDE 106 mmol/L (98-107); GFR AFRICAN-AMERICAN > 60; GLUCOSE,RANDOM 102 mg/dL (70-110); POTASSIUM 4.4 mmol/L (3.6-5.0); SODIUM 143 mmol/L (132-148); TOTAL PROTEIN 7.5 g/dL (5.8-8.3)
[2017-06-03 08:42] LABS: TROPONIN I < 0.01 ng/mL
[2017-06-03] MEDS ORDERED: Gadodiamide 287 MG/ML VIAL (15ML) IV ONE (09:49)
--- NOTE | 2017-06-03 11:55 | CT ---
PROCEDURE: CT Angiography of the neck with contrast HISTORY: r/o CVA COMPARISON: None available. TECHNIQUE: Contiguous axial images of the neck were obtained from the level of the skull-base to the superior mediastinum in the arteriographic phase of enhancement. Coronal and sagittal reformats or also generated. IV contrast dose: 100 cc of Omni 350 Radiation Dose - DLP: 472 mGy-cm This CT exam was performed using one or more of the following dose reduction techniques: Automated exposure control, adjustment of the mA and/or kV according to patient size, and/or use of iterative reconstruction technique. FINDINGS: RIGHT CAROTID ARTERIES: Common Carotid Artery: Normal. Carotid Bifurcation: Normal. Internal Carotid Artery:Normal. External Carotid Artery (proximal branches): Normal. LEFT CAROTID ARTERIES: Common Carotid Artery: Normal. Carotid Bifurcation: Normal. Internal Carotid Artery:Normal. External Carotid Artery (proximal branches): Normal. VERTEBRAL ARTERIES: Right Vertebral Artery: Normal. Left Vertebral Artery: Normal. OTHER FINDINGS: None. IMPRESSION: Negative study
--- NOTE | 2017-06-03 12:47 | MRI ---
PROCEDURE: MRI BRAIN WITH AND WITHOUT CONTRAST HISTORY: r/o cva COMPARISON: None. TECHNIQUE: Multiplanar, multisequence MR images of the brain were obtained with and without intravenous contrast enhancement. FINDINGS: HEMORRHAGE: None DWI: No evidence of an acute or early subacute infarction. BRAIN PARENCHYMA: No mass,mass effect or edema. No atrophy or chronic microvascular ischemic changes. ENHANCEMENT: No abnormal intracranial enhancement. VENTRICLES: Unremarkable. No hydrocephalus. CRANIUM: Unremarkable. ORBITS: Grossly unremarkable. PARANASAL SINUSES/MASTOIDS: Clear VASCULAR SYSTEM: Skull base flow voids intact. OTHER FINDINGS: None . IMPRESSION: No acute intracranial findings. No evidence of acute infarct or hemorrhage
--- NOTE | 2017-06-03 14:24 | CARD ---
APPROVED REPORT EXAM: Two-dimensional and M-mode echocardiogram with Doppler and color Doppler. INDICATION 2D DIMENSIONS IVSd1.0 (0.7-1.1cm)LVDd4.4 (3.9-5.9cm) PWd1.0 (0.7-1.1cm)LVDs2.8 (2.5-4.0cm) FS (%) 37.9 %LVEF (%)50.0 (>50%) M-Mode DIMENSIONS Left Atrium (MM)2.20 (2.5-4.0cm)Aortic Root2.80 (2.2-3.7cm) Aortic Cusp Exc.1.70 (1.5-2.0cm) Aortic Valve AoV Peak Jawxiynw942.0cm/Nydia Peak GR.8mmHg Mitral Valve MV E Ubbcdjnn93.3cm/sMV A Tbbdxhyb45.3cm/sE/A ratio1.0 TDI Lateral E' Peak V8.77cm/sMedial E' Peak V15.00cm/sE/Lateral E'6.4 E/Medial E'3.8 Tricuspid Valve TR Peak Gkgrsire699sk/sRAP [id number] Peak Gr.31mmHg [id number] LEFT VENTRICLE The left ventricle is normal size. There is normal left ventricular wall thickness. Left ventricle ejection fraction is borderline. Septal hypokinesis Transmitral Doppler flow pattern is Grade I-abnormal relaxation pattern. RIGHT VENTRICLE The right ventricle is normal size. There is normal right ventricular wall thickness. The right ventricular systolic function is normal. ATRIA The left atrium size is normal. The right atrium size is normal. AORTIC VALVE The aortic valve is normal in structure. No aortic regurgitation is present. MITRAL VALVE The mitral valve is normal in structure. There is no mitral valve regurgitation noted. TRICUSPID VALVE There is mild pulmonary hypertension. GREAT VESSELS The aortic root is normal in size. The IVC is normal in size and collapses >50% with inspiration. PERICARDIAL EFFUSION There is a small loculated anterior pericardial effusion. <Conclusion> The left ventricle is normal size. There is normal left ventricular wall thickness. Left ventricle ejection fraction is borderline. Septal hypokinesis Transmitral Doppler flow pattern is Grade I-abnormal relaxation pattern. There is mild pulmonary hypertension.
--- NOTE | 2017-06-03 15:00 | CP.PCM.PN ---
<Jose Maria Green - Last Filed: 06/03/17 14:54> Subjective - Date & Time of Evaluation Date of Evaluation: 06/03/17 Time of Evaluation: 07:50 - Subjective Subjective: Medicine Progress Note: Pt seen and examined at bedside. No Acute events overnight. Pt still c/o of some tingliness of her L hand . No other complaints. Denies any f/c, sob, palpitations, cp, abd pain, n/v/d. Objective - Vital Signs/Intake and Output Vital Signs (last 24 hours): Temp Pulse Resp BP Pulse Ox 98.1 F 84 16 124/77 100 06/03/17 12:00 06/03/17 12:00 06/03/17 12:00 06/03/17 12:00 06/03/17 06:00 Intake and Output: 06/03/17 06/03/17 06:59 18:59 Intake Total 480 Output Total 800 Balance -320 - Medications Medications: Current Medications Acetaminophen (Tylenol 325mg Tab) 650 mg PO Q6H PRN PRN Reason: Pain, moderate (4-7) Last Admin: 06/03/17 04:49 Dose: 650 mg Aspirin (Aspirin Chewable) 81 mg PO DAILY GEOVANNA Last Admin: 06/03/17 09:28 Dose: 81 mg Atorvastatin Calcium (Lipitor) 20 mg PO DIN GEOVANNA Gabapentin (Neurontin) 100 mg PO DAILY GEOVANNA PRN Reason: Protocol Last Admin: 06/03/17 09:27 Dose: 100 mg Pantoprazole Sodium (Protonix Ec Tab) 40 mg PO ACB GEOVANNA Last Admin: 06/03/17 07:28 Dose: 40 mg - Labs Labs: 06/03/17 07:59 06/03/17 07:59 PT 11.3 SECONDS (9.4-12.5) 06/02/17 16:00 INR 1.04 (0.93-1.08) 06/02/17 16:00 APTT 29.7 Seconds (25.1-36.5) 06/02/17 16:00 - Constitutional Appears: No Acute Distress - Head Exam Head Exam: ATRAUMATIC, NORMOCEPHALIC - Eye Exam Eye Exam: EOMI, PERRL - ENT Exam ENT Exam: Mucous Membranes Moist - Respiratory Exam Respiratory Exam: Clear to Ausculation Bilateral. absent: Rales, Rhonchi, Wheezes - Cardiovascular Exam Cardiovascular Exam: REGULAR RHYTHM, RRR, +S1, +S2 - GI/Abdominal Exam GI & Abdominal Exam: Soft. absent: Tenderness - Extremities Exam Extremities Exam: absent: Calf Tenderness, Pedal Edema - Neurological Exam Neurological Exam: Alert, Awake, Oriented x3 - Skin Skin Exam: Dry, Intact, Warm Assessment and Plan - Assessment and Plan (Free Text) Assessment: 57 year old female with past medical history of lyme disease, bells palsy, HTN presents with slurred speech rule out CVA. Plan: 1. Slurred Speech- Rule Out CVA - F/u neurology recs -EKG ordered and obtained: sinus rhythm, pending official read -Chest Xray ordered and obtained: no active disease -CT head: normal no active bleed -started on lipitor and aspirin -MRI of Brain with and without contrast - No acute pathology -CTA Neck - negative -alcohol level ordered -urine drug screen -Bedside swallow evaluation ordered -Echo showed EF of 50% with septal kypokinesis and mild pulm Hypotn -physical therapy evaluation ordered 2. Chest Discomfort-chronic, likely chostochondritis, will rule out ACS -serial trops x 3 neg -Echo showed EF of 50% with septal kypokinesis and mild pulm Hypotn -EKG pending official read 3. Neuropathy -continue Gabapentin -consider increase if neuropathy continues 4. HTN -stable -hold HTN medications - losartan 5. GI/DVT prophylaxis -protonix -scds Pt and plan was seen, reviewed and discussed in detail with Dr Vazquez. <Td Vazquez - Last Filed: 06/04/17 13:23> Objective - Vital Signs/Intake and Output Vital Signs (last 24 hours): Temp Pulse Resp BP Pulse Ox 98.3 F 84 17 105/73 100 06/04/17 12:00 06/04/17 12:00 06/04/17 12:00 06/04/17 12:00 06/04/17 06:00 Intake and Output: 06/04/17 06/04/17 06:59 18:59 Intake Total 480 Output Total 1000 Balance -520 - Labs Labs: 06/04/17 07:00 06/04/17 07:00 PT 11.3 SECONDS (9.4-12.5) 06/02/17 16:00 INR 1.04 (0.93-1.08) 06/02/17 16:00 APTT 29.7 Seconds (25.1-36.5) 06/02/17 16:00 Attending/Attestation - Attestation I have personally seen and examined this patient.: Yes I have fully participated in the care of the patient.: Yes I have reviewed all pertinent clinical information, including history, physical exam and plan: Yes Notes (Text): 06/04/17 13:22 Patient was seen and examined with medical lab scientist. Agreed with resident assessment and plan. 45 F with TIA, Peripheral Neuropathy, work up is negative (MRI brain,Echo,), symptoms are resolved .Patient is ambulatory. We will follow up Neurology recommendation Management plan was discussed in detail with patient Education was provided.
--- NOTE | 2017-06-04 01:03 | CON ---
DATE: NEUROLOGY CONSULTATION REASON FOR CONSULTATION: Rule out CVA. HISTORY OF PRESENT ILLNESS: The patient is a 57-year-old female who has been asked for evaluation to rule out cerebrovascular accident. The patient said that yesterday, she was having some slurred speech and she was told to go to the emergency room. The patient has history of numbness and tingling sensation in the medial aspect of the left arm and forearm over the last two months, which is on and off. The patient has been taking Neurontin, which was helping, however, is no longer helping her tingling and numbness. Because of the slurring of speech, she came to the emergency room. At that moment, she has no further slurring of speech, slurring of speech lasted a few minutes only. Denies any other complaints. PAST MEDICAL HISTORY: Includes Maldonado's palsy, Lyme disease, and hypertension. PAST SURGICAL HISTORY: Includes hysterectomy. MEDICATIONS: Her medications at home include Neurontin 100 mg twice a day, and Losartan. ALLERGIES: NO KNOWN DRUG ALLERGIES. FAMILY HISTORY: Reviewed and noncontributory to the case. SOCIAL HISTORY: She does smoke cigarettes. Socially, drinks alcohol and denies use of any illicit drugs. REVIEW OF SYSTEMS: Denies any chest pain, shortness of breath, abdominal pain, abdominal pain, constipation, diarrhea, dysphagia, cough, or sputum production. PHYSICAL EXAMINATION: GENERAL: The patient is a middle-aged female lying on the bed, in no acute distress. VITAL SIGNS: Her blood pressure is 124/77, heart rate is 84 per minute, breathing at the rate of 16 per minute, temperature is 98.1 degrees Fahrenheit. HEENT: Head is normocephalic and atraumatic. NECK: Supple. There are no carotid bruits. LUNGS: Clear. CARDIOVASCULAR: S1 and S2 audible. No murmurs. ABDOMEN: Soft and nontender. Bowel sounds are present. NEUROLOGY: Mental status: The patient is awake, alert, and oriented to time, place, and person. Speech is fluent. Naming and repetition normal. Memory and cognition are intact. Cranial nerve exam: The pupils are 3 mm bilaterally reactive to light. Visual monsalve are full. Extraocular movements are intact. There is asymmetry of the blinking. Decreased blinking on the right side. The patient does have history of Maldonado's palsy in the past. Palate is upgoing bilaterally and tongue is midline. Motor Examination: Tone is normal. Power is 5/5 bilaterally in all extremities. Reflexes are 1+ and symmetrical. Plantars downgoing bilaterally. Sensory examination is intact to soft touch and pinprick. Gait is deferred at the moment. LABORATORY DATA: Labs reviewed shows WBC of 5.1, hemoglobin 12.8, hematocrit 39.2, platelets 165. Her sodium is 143, potassium 4.4, chloride 106, carbon dioxide 27, BUN of 13, creatinine of 0.9 and glucose of 102. Her TSH is normal. LDL is 81. Urine toxicology is positive for cannabinoids. She had MRI of the brain done, which showed no acute intracranial findings. No evidence of acute infarct or hemorrhage. IMPRESSION: 1. Status post dysarthria, questionable transient ischemic attack. 2. Numbness in the medial aspect of the left arm and forearm, which appears to be secondary to cervical radiculopathy. 3. History of Maldonado's palsy on the right side. RECOMMENDATION: 1. The patient to have carotid Doppler studies. 2. The patient had an echocardiogram, which shows no thrombus. 3. The patient to have MRI of the cervical spine, which may be done as an outpatient if she is dysarthric. 4. The patient's Neurontin dose is to be increased to 200 mg twice a day. 5. The patient to be continued on aspirin for possible TIA causing her to have dysarthria. 6. Continue supportive care and another treatment. Thank you for the opportunity to participate in the care of this patient. Selene Wakefield MD
[2017-06-04 06:15] VITALS: O2SAT 100
[2017-06-04] MEDS: Pantoprazole 40 mg EC Tab PO SCH (06:31)
[2017-06-04 07:40] LABS: ALB/GLOB RATIO 1.4 (1.1-1.8); ALKALINE PHOSPHATASE 109 U/L (38-126); ALT/SGPT 44 U/L (7-56); AST/SGOT 28 U/L (14-36); BLOOD UREA NITROGEN 14 mg/dL (7-21); CALCIUM 9.9 mg/dL (8.4-10.5); CARBON DIOXIDE 29 mmol/L (21-33); CHLORIDE 106 mmol/L (95-110); GFR AFRICAN-AMERICAN > 60; GLUCOSE,RANDOM 96 mg/dL (70-110); POTASSIUM 4.7 mmol/L (3.6-5.0); SODIUM 142 mmol/L (132-148); TOTAL PROTEIN 7.6 g/dL (5.8-8.3)
[2017-06-04 07:53] LABS: BASO # 0.06 K/mm3 (0.0-2.0); BASO % 1.1 % (0.0-3.0); EOS # 0.2 (0.0-0.7); EOS % 3.1 % (1.5-5.0); GRAN # 1.53 (1.4-6.5); GRAN % 27.8 % (50.0-68.0); HEMATOCRIT 40.1 % (36.0-48.0); LYMPH # 3.5 (1.2-3.4); LYMPH % 63.3 % (22.0-35.0); MEAN CELL VOLUME 86.8 fl (80.0-105.0); MEAN CORPUSCULAR HEMOGLOBIN 28.1 pg (25.0-35.0); MEAN CORPUSCULAR HGB CONC 32.4 g/dl (31.0-37.0); MONO # 0.3 (0.1-0.6); MONO % 4.7 % (1.0-6.0); RED CELL DISTRIBUTION WIDTH 14.4 % (11.5-14.5); WHITE BLOOD COUNT 5.5 10^3/ul (4.5-11.0)
[2017-06-04] MEDS ORDERED: Pneumococcal 23-Valent Vaccine IM ONE (12:00)
[2017-06-04] MEDS ORDERED: Influenza Vaccine 60 mcg/0.5 mL SYR (4YR UP) IM ONE (12:00)
[2017-06-04 12:52] VITALS: BP 105/73; PULSE 84; RESP 17; TEMP 98.3
--- NOTE | 2017-06-04 13:12 | CP.PCM.DIS ---
Provider - Provider Date of Admission: 06/02/17 17:00 Attending physician: Td Vazquez MD Primary care physician: NO PRIMARY CARE PROVIDER Consults: Neuro Time Spent in preparation of Discharge (in minutes): 40 Diagnosis - Discharge Diagnosis (1) TIA (transient ischemic attack) Status: Acute Hospital Course - Lab Results Lab Results: Most Recent Lab Values WBC 5.5 10^3/ul (4.5-11.0) 06/04/17 07:00 RBC 4.62 10^6/uL (3.5-6.1) 06/04/17 07:00 Hgb 13.0 g/dL (12.0-16.0) 06/04/17 07:00 Hct 40.1 % (36.0-48.0) 06/04/17 07:00 MCV 86.8 fl (80.0-105.0) 06/04/17 07:00 MCH 28.1 pg (25.0-35.0) 06/04/17 07:00 MCHC 32.4 g/dl (31.0-37.0) 06/04/17 07:00 RDW 14.4 % (11.5-14.5) 06/04/17 07:00 Plt Count 169 10^3/uL (120.0-450.0) 06/04/17 07:00 MPV 12.0 fl (7.0-11.0) H 06/04/17 07:00 Gran % 27.8 % (50.0-68.0) L 06/04/17 07:00 Lymph % (Auto) 63.3 % (22.0-35.0) H 06/04/17 07:00 [place] % (Auto) 4.7 % (1.0-6.0) 06/04/17 07:00 Eos % (Auto) 3.1 % (1.5-5.0) 06/04/17 07:00 Baso % (Auto) 1.1 % (0.0-3.0) 06/04/17 07:00 Gran # 1.53 (1.4-6.5) 06/04/17 07:00 Lymph # 3.5 (1.2-3.4) H 06/04/17 07:00 [place] # 0.3 (0.1-0.6) 06/04/17 07:00 Eos # 0.2 (0.0-0.7) 06/04/17 07:00 Baso # 0.06 K/mm3 (0.0-2.0) 06/04/17 07:00 PT 11.3 SECONDS (9.4-12.5) 06/02/17 16:00 INR 1.04 (0.93-1.08) 06/02/17 16:00 APTT 29.7 Seconds (25.1-36.5) 06/02/17 16:00 Sodium 142 mmol/L (132-148) 06/04/17 07:00 Potassium 4.7 mmol/L (3.6-5.0) 06/04/17 07:00 Chloride 106 mmol/L (95-110) 06/04/17 07:00 Carbon Dioxide 29 mmol/L (21-33) 06/04/17 07:00 Anion Gap 12 (10-20) 06/04/17 07:00 BUN 14 mg/dL (7-21) 06/04/17 07:00 Creatinine 1.0 mg/dL (0.7-1.2) 06/04/17 07:00 Est GFR ( Amer) > 60 06/04/17 07:00 Est GFR (Non-Af Amer) 57 06/04/17 07:00 Random Glucose 96 mg/dL (70-110) 06/04/17 07:00 Calcium 9.9 mg/dL (8.4-10.5) 06/04/17 07:00 Phosphorus 4.1 mg/dL (2.5-4.5) 06/02/17 16:00 Magnesium 2.0 mg/dL (1.7-2.2) 06/02/17 16:00 Total Bilirubin 1.0 mg/dL (0.2-1.3) 06/04/17 07:00 AST 28 U/L (14-36) 06/04/17 07:00 ALT 44 U/L (7-56) 06/04/17 07:00 Alkaline Phosphatase 109 U/L (38-126) 06/04/17 07:00 Lactate Dehydrogenase 623 U/L (333-699) 06/02/17 16:00 Total Creatine Kinase 171 U/L (35-230) 06/02/17 16:00 Troponin I < 0.01 ng/mL 06/03/17 07:59 Total Protein 7.6 g/dL (5.8-8.3) 06/04/17 07:00 Albumin 4.5 g/dL (3.0-4.8) 06/04/17 07:00 Globulin 3.1 gm/dL 06/04/17 07:00 Albumin/Globulin Ratio 1.4 (1.1-1.8) 06/04/17 07:00 Triglycerides 84 mg/dL (35-160) 06/02/17 16:00 Cholesterol 189 mg/dL (130-200) 06/02/17 16:00 LDL Cholesterol Direct 81 mg/dL (0-129) 06/02/17 16:00 HDL Cholesterol 75 mg/dL (29-60) H 06/02/17 16:00 TSH 3rd Generation 0.75 mIU/mL (0.46-4.68) 06/02/17 16:00 Urine Color Yellow (YELLOW) 06/02/17 21:15 Urine Appearance Clear (CLEAR) 06/02/17 21:15 Urine pH 6.5 (4.7-8.0) 06/02/17 21:15 Ur Specific [place] 1.010 (1.005-1.035) 06/02/17 21:15 Urine Protein Negative mg/dL (<30 mg/dL) 06/02/17 21:15 Urine Glucose (UA) Negative mg/dL (NEGATIVE) 06/02/17 21:15 Urine Ketones Trace mg/dL (NEGATIVE) H 06/02/17 21:15 Urine Blood Negative (NEGATIVE) 06/02/17 21:15 Urine Nitrate Negative (NEGATIVE) 06/02/17 21:15 Urine Bilirubin Negative (NEGATIVE) 06/02/17 21:15 Urine Urobilinogen 0.2 E.U./dL (<1 E.U./dL) 06/02/17 21:15 Ur Leukocyte Esterase Negative [place]/uL (NEGATIVE) 06/02/17 21:15 Urine Opiates Screen Negative (NEGATIVE) 06/02/17 21:15 Urine Methadone Screen Negative (NEGATIVE) 06/02/17 21:15 Ur Barbiturates Screen Negative (NEGATIVE) 06/02/17 21:15 Ur Phencyclidine Scrn Negative (NEGATIVE) 06/02/17 21:15 Ur Amphetamines Screen Negative (NEGATIVE) 06/02/17 21:15 U Benzodiazepines Scrn Negative (NEGATIVE) 06/02/17 21:15 U Oth Cocaine Metabols Negative (NEGATIVE) 06/02/17 21:15 U Cannabinoids Screen Positive (NEGATIVE) H 06/02/17 21:15 Alcohol, Quantitative < 10 mg/dL (0-10) 06/02/17 16:00 Blood Type O POSITIVE 06/02/17 16:00 Antibody Screen Negative 06/02/17 16:00 BBK History Checked Patient has bt 06/02/17 16:00 - Hospital Course Hospital Course: 57 yo female with past medical history of bells palsy, lyme disease, HTN presents after her mother noticed the patient had some slurred speech and L arm tingliness. In the ED basic lab work and EKG was done. Serial trops x 3 neg. CXR showed no active dx. CT of the head was unremarkable, CTA Neck - negative. Pt was admitted for TIA r/o CVA. Neuro was consulted for recs. MRI of Brain with and without contrast - No acute pathology. Echo showed EF of 50% with septal kypokinesis and mild pulm Hypotn. Physical therapy evaluation ordered. Pt L arm was tingliness was alleviated with increasing dose of Neurontin to 200mg BID as per neuro recs. Today pt states that she feels much better. Her L arm tingliness had completely resolved. No other complaints. Denies any headache , dizziness, visual changes, cp, sob, abd pain, n/v/d. Discharge Exam - Head Exam Head Exam: ATRAUMATIC, NORMOCEPHALIC - Eye Exam Eye Exam: EOMI, PERRL - Respiratory Exam Respiratory Exam: Clear to PA & Lateral. absent: Rales, Rhonchi, Wheezes - Cardiovascular Exam Cardiovascular Exam: REGULAR RHYTHM, RRR, +S1, +S2 - GI/Abdominal Exam GI & Abdominal Exam: Normal Bowel Sounds, Soft. absent: Tenderness - Neurological Exam Neurological exam: Alert, Oriented x3 - Psychiatric Exam Psychiatric exam: Normal Affect, Normal Mood - Skin Skin Exam: Dry, Intact, Warm Discharge Plan - Discharge Medications Prescriptions: Aspirin [Aspirin Chewable] 81 mg PO DAILY #30 chew Gabapentin [Neurontin] 300 mg PO HS #30 cap - Follow Up Plan Condition: IMPROVED Disposition: HOME/ ROUTINE Patient education suggested?: Yes Instructions: Aspirin (By mouth), Gabapentin (By mouth), Chest Pain (DC), Pneumococcal Vaccine for Adults (DC), Cigarette Smoking and Your Health (GEN), Influenza Vaccine (DC), Weakness (GEN) Additional Instructions: Follow up with PMD with in 3-5 days. Follow up with neurologiest with in 1 week. If your symptoms recur come back to the ED. Do not drive immediately after taking Neurontin due to drowsiness. Referrals: PCP,NO [Primary Care Provider] -
--- NOTE | 2017-06-04 13:22 | MRI ---
PROCEDURE: MR CERVICAL SPINE WITHOUT CONTRAST HISTORY: numbness in left arm COMPARISON: None available. TECHNIQUE: Multiecho multiplanar sequences were performed through the cervical spine without the use of intravenous contrast. FINDINGS: Normal lordotic curvature. Craniocervical junction unremarkable. Vertebral body heights preserved. No marrow signal abnormality. Normal cervical cord. No paraspinal abnormality. C2-C3: No disc herniation, spinal canal stenosis or neural foraminal narrowing. C3-C4: No disc herniation, spinal canal stenosis or neural foraminal narrowing. C4-C5: No disc herniation, spinal canal stenosis or neural foraminal narrowing. C5-C6: No disc herniation, spinal canal stenosis or neural foraminal narrowing. C6-C7: No disc herniation, spinal canal stenosis or neural foraminal narrowing. C7-T1: No disc herniation, spinal canal stenosis or neural foraminal narrowing. OTHER FINDINGS: None. IMPRESSION: Unremarkable non contrast enhanced MRI of the cervical spine.
== END 2017-06-04 13:12 | disposition home or self-care (01) ==
LOC: ED 15:36 → ERH 17:00 → 2RNO 19:24
PROVIDERS: ADMIT Internal Medicine; ATTEND Internal Medicine
DX: G45.9 Transient cerebral ischemic attack, unspecified (principal); R47.81 Slurred speech; G51.0 Bell's palsy; F17.210 Nicotine dependence, cigarettes, uncomplicated; R07.89 Other chest pain; I10 Essential (primary) hypertension; Z86.19 Personal history of other infectious and parasitic diseases; Z80.49 Family history of malignant neoplasm of other genital organs
CPT/HCPCS: 36415; 70450; 70498; 70553; 71010; 72141; 80053; 80061; 80320; 80324; 80345; 80346; 80349; 80353; 80358; 80361; 81003; 82550; 83036; 83615; 83735; 83992; 84100; 84443; 84484; 85025; 85610; 85730; 86850; 86900; 90471; 90674; 90732; 93005; 93306; 99285; A9579; G0378; Q9967